=== PATIENT | female | born 1980 | race Caucasian/White ===

== ENCOUNTER 2016-09-30 22:10 | Emergency (ER) | payer BC ==
[~2016-09-30 22:10] MED LIST: IBUPROFEN800 MG PO; NO MEDICATIONS; PEN-VEE K PO; PYRIDIUM100 MG PO; URISPAS100 M1 PO; ZOFRAN ODT4 MG PO; ZOFRAN ODT4 MG SL; ZOFRANODT PO
== END 2016-09-30 22:15 | disposition left against medical advice (07) ==
LOC: CED 22:10
DX: Z53.21 Procedure and treatment not carried out due to patient leaving prior to being seen by health care provider (principal)